=== PATIENT | male | born 1975 | race Caucasian/White ===

== ENCOUNTER 2023-03-02 09:26 | Emergency (ER) | payer BC, SELFPAY ==
[2023-03-02 09:39] VITALS: BP 148/90; PULSE 62; RESP 16; TEMP 36.6; O2SAT 100
--- NOTE | 2023-03-02 09:40 | ED.URI ---
HPI - URI/Sore Throat General Chief Complaint: Upper Respiratory Infection Stated Complaint: sore throat/sinus pressure/nolasco Source: patient and RN notes reviewed History of Present Illness HPI Narrative: 48 yo M presents to urgent care with complaints of worsening sore throat, congestion, sinus pain and pressure x 5 days. Pt states his pain and pressure is in his face, frontal head and has an occipital NOLASCO. Pt denies any ear pain, known fevers, chills, chest pain, SOB, V/D, or other complaints. Pt has been taking Sudafed and ibuprofen with no relief. Related Data Allergies Allergy/AdvReac Type Severity Reaction Status Date / Time Penicillins AdvReac Severe Passed out Verified 12/23/22 08:24 Review of Systems Review of Systems: Pertinent positives and pertinent negatives per HPI. [facility] Past Medical History Medical History GERD (gastroesophageal reflux disease) Hypertension Nicotine dependence, cigarettes, uncomplicated Obesity, unspecified Seasonal rhinitis Family History Family History Grandparent Cerebrovascular accident Diabetes mellitus Father Diabetes mellitus Hypertension Social History Social History Smoking status: Current every day smoker Tobacco type: cigarettes Second hand tobacco smoke exposure: No Alcohol intake: never Substance use: never Substance use type: does not use Living arrangements: with family Occupation/Education: occupation Gender identity (if verbalized by the patient): Male Sexual Orientation (if Verbalized by the Patient): Straight or Heterosexual Spiritual care concerns: No Agree to blood products: Yes Comments At the time of my signature, I reviewed and agree with the nursing past medical, surgical, social, and family history. There is no relevant family history pertinent to the patient complaint. Exam Narrative: GENERAL: This is a well-nourished, well-developed patient, in no apparent distress. HEAD: normocephalic, atraumatic. EYES: Sclera clear/white. Vision is grossly intact. EARS: External ears normal, auditory canals clear and without drainage, TMs normal without perforation. Hearing grossly intact. NOSE: External nose normal with no obvious nasal discharge, nares without redness, no rhinorrhea. THROAT: erythremic. Small amount of exudate noted to tonsils NECK: Neck supple, non-tender without lymphadenopathy, masses or thyromegaly. CARDIOVASCULAR: Regular rate and rhythm without murmurs, gallops, or rubs. RESPIRATORY: Clear to auscultation. Breath sounds equal bilaterally. No wheezes, rales, or rhonchi. SKIN: warm, intact with no suspicious lesions or rash, good texture and turgor. NEURO: awake, alert, and oriented to person, place and time. There were no obvious focal neurologic abnormalities. EXTREMITIES: No clubbing, cyanosis, or edema. No joint tenderness, effusion, or edema noted. Course Course Level of Care: Express Care Visit Vital Signs Vital signs: Vital Signs Temperature 97.9 F 03/02/23 09:39 Pulse Rate 62 03/02/23 09:39 Respiratory Rate 16 03/02/23 09:39 Blood Pressure 148/90 H 03/02/23 09:39 Pulse Oximetry 100 03/02/23 09:39 Temperature 97.9 F 03/02/23 09:39 Pulse Rate 62 03/02/23 09:39 Respiratory Rate 16 03/02/23 09:39 Blood Pressure 148/90 H 03/02/23 09:39 Pulse Oximetry 100 03/02/23 09:39 reviewed MDM - URI/Sore Throat MDM Narrative Medical decision making narrative: Rapid strep is negative in the office; however we will send to the lab for confirmation; there is a small percentage chance that it can come back positive; if it is, we will call you in 2-3days; and your prescription will be call in to your pharmacy. However, there is NO indication for antibiotic at this time. -Increase your fluids and Vi
== END 2023-03-02 10:09 | disposition home or self-care (01) ==
PROVIDERS: Emergency Provider Nurse Practitioner Family; PCP Family Medicine Adolescent Medicine
DX: J02.9 Acute pharyngitis, unspecified (principal); J32.9 Chronic sinusitis, unspecified; F17.210 Nicotine dependence, cigarettes, uncomplicated; K21.9 Gastro-esophageal reflux disease without esophagitis; I10 Essential (primary) hypertension; E66.9 Obesity, unspecified; Z68.35 Body mass index [BMI] 35.0-35.9, adult
CPT/HCPCS: 87081; 87880; 99213; G0463

== ENCOUNTER 2023-06-28 12:28 | Outpatient (CLI) | payer BC, SELFPAY ==
--- NOTE | 2023-06-28 12:30 | ECG_ITS ---
Measurements Intervals [place] Rate: 51 P: 24 [place]: 178 QRS: 5 QRSD: 110 T: -8 QT: 468 QTc: 434 Interpretive Statements SINUS BRADYCARDIA POSSIBLE LEFT VENTRICULAR HYPERTROPHY BORDERLINE ST-T WAVE ABNORMALITY- INFERIOR LEADS BASELINE ARTIFACT- I, III, AVR, AVL, AVF, V2 BORDERLINE ECG NO PREVIOUS ECG AVAILABLE FOR COMPARISON Electronically Signed On 06-28-2023 13:02:59 CDT by Florian Villanueva D.O.
[2023-06-28 13:12] LABS: Anion Gap 7 mmol/L (8-16); Blood Urea Nitrogen 22 mg/dL (9-20); Carbon Dioxide 29 mmol/L (22-30); Chloride 102 mmol/L (98-107); Potassium 3.3 mmol/L (3.4-5.0); Sodium 138 mmol/L (137-145)
[2023-06-28 13:13] LABS: Calcium 8.8 mg/dL (8.4-10.2); Estimated Glomerular Filt Rate > 60; Glucose 120 mg/dL (65-110)
== END 2023-06-28 12:29 | disposition home or self-care (01) ==
LOC: ANHSURGERY 12:33
PROVIDERS: Anesthesiology; PCP Family Medicine Adolescent Medicine; Visit Provider Surgery
DX: I10 Essential (primary) hypertension (principal); Z01.818 Encounter for other preprocedural examination; R94.31 Abnormal electrocardiogram [ECG] [EKG]
CPT/HCPCS: 36415; 80048; 93005

== ENCOUNTER 2023-07-03 01:14 | Day surgery (SDC) | payer BC, SELFPAY ==
--- NOTE | 2023-06-27 09:29 | PC.NURSE ---
Report to the Outpatient Waiting Room, entrance under the green pavilion located off [facility], at time 1000_ on date 07/03/23_. Planned Procedure Time: 1200_. Time changes happen often and if your time is changed the preop area will call you the afternoon before. - You and your visitor will be asked to self-screen and do not enter if you have any COVID symptoms. - A mask is optional within the hospital at this time. Patients may have clear liquids (water, carbonated beverages, clear teas, apple juice) until 3 hours prior to surgery with a maximum of 20 ounces. - No food from midnight until time of surgery - Infants may have breast milk until 4 hours before surgery, formula 6 hours prior to surgery. - Children will be allowed to drink immediately following surgery. If applicable, please bring a bottle or sippy cup to assist with drinking. Juice, water, soda, and popsicles are readily available. For infants on formula, please bring formula the day of surgery. Pacifiers are allowed. Take the following medications with a SIP of water the morning of surgery: ____ATENOLOL DO NOT STOP ANY OF YOUR OTHER PRESCRIPTION MEDICATIONS PRIOR TO SURGERY ?EXCEPT THE FOLLOWING Medications to discontinue per physician NONE Date to take last dose Please no make-up, nail occitan, hairspray, perfume, deodorant, or body powder the day of surgery. No jewelry (including any body piercings) or valuables the day of surgery, leave them at home. Please take a shower or bath the night before, or the morning of, surgery with HIBICLENS antibacterial soap. Wear comfortable, loose fitting clothing. Children are encouraged to wear pajamas. - Jewelry must be removed prior to entering the operating room. Rings and piercings that are not removed may be cut off. - The hospital will not accept responsibility for valuables. - Please leave all valuables, including medications, at home the day of surgery. If you are going home after surgery, a licensed laundry route driver must drive you home. - NO public transportation without another adult if you receive anesthesia. - We recommend that an adult stay with you for 24 hours following discharge. - We also recommend that you do not drive, make important decision, drink alcoholic beverages, or take any drugs that were not prescribed by your health care provider for at least 24 hours after your discharge time. For Pediatric surgeries, we recommend two adults accompany the child home. Follow any additional instructions given to you from your surgeon. If you or anyone in your household have experienced Covid symptoms in the past week, please notify your surgeon or the nurse liaison at the phone number below for possible testing. Telephone instructions given to PATIENT_and asked if any additional questions and then verbalized understanding. Patient advised to call surgeon office or pre surgery nurse liaison [phone] if any additional questions.
--- NOTE | 2023-07-03 10:31 | WPDANESEPPF ---
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 - Alfa Marks MD Date/Time: 07/03/23 10:31 Surgeon: Alfa Marks MD Pre Op Diagnosis: Lt Upper Back Squamous Cell CA In Situ Patient Data Age: 48 Gender: M Height: 1.78 m Weight: 110 kg Allergies Allergy/AdvReac Type Severity Reaction Status Date / Time Penicillins AdvReac Severe Passed out Verified 06/27/23 09:21 Home Medications Medication Instructions Recorded Confirmed Type atenolol 100 mg tablet 100 mg PO DAILY #90 tabs 12/23/22 06/27/23 Rx hydrochlorothiazide 25 mg tablet 25 mg PO DAILY #90 tabs 12/23/22 06/27/23 Rx lisinopril 40 mg tablet 40 mg PO DAILY #90 tabs 12/23/22 06/27/23 Rx omeprazole 20 mg capsule,delayed 20 mg PO DAILY #90 caps 12/23/22 06/27/23 Rx release fluticasone propionate 50 1 spray intranasal BID #16 grams 03/02/23 06/27/23 Rx mcg/actuation nasal spray,suspension (24 Hour Allergy Relief) Patient hx anesthesia problems: none Family hx anesthesia problems: none Results Review: All pre-operative results and documents have been reviewed as part of the pre-operative evaluation. [facility] Past Medical History Medical History Diabetes type 2, controlled 12/2021 GERD (gastroesophageal reflux disease) Hypertension Nicotine dependence, cigarettes, uncomplicated Obesity, unspecified Seasonal rhinitis Surgical History Surgical History History of removal of pigmented skin lesion Family History Family History Grandparent Cerebrovascular accident Diabetes mellitus Father Diabetes mellitus Hypertension Social History Social History Smoking packs per day: 1 Smoking cigarettes per day: 20.0 Years smoked: 20 Smoking pack-years: 20.00 Smoking status: Former smoker Tobacco type: e-cigarettes/vaping Second hand tobacco smoke exposure: No Additional smoking assessment comments: VAPING FOR 1 YR Alcohol intake: never Substance use: never Substance use type: does not use Lack of Transportation: No Lack of Food: Never True Current Housing: I Have Housing Concerned About Future Housing: No Difficulty Paying Gas/Electric Bills: No Difficulty Paying for Meds: No Currently Unemployed: No Education: High School Diploma/GED Difficulty w/ Childcare or Family Care: No Living arrangements: with family Occupation/Education: occupation Additional occupation/education comments: Dietary Tech Gender identity (if verbalized by the patient): Male Sexual Orientation (if Verbalized by the Patient): Straight or Heterosexual Spiritual care concerns: No Agree to blood products: Yes Anes - Eval Final PreProcedure Day of Procedure 07/03/23 10:31 Patient weight: obese Heart: regular rate and rhythm Lungs: clear to auscultation Airway: Mallampati scale class II Neurological: alert and oriented Last oral intake: >/= 8 hours ASA classification: III Emergent: no Anesthetic plan: proceed Anesthesia type and monitoring: general GIVS and standard monitoring Results Review: All pre-operative results and documents have been reviewed as part of the pre-operative evaluation. Informed Consent: The patient's anesthetic plan and its attendant risks and benefits were discussed with the patient/family/POA. Questions were solicited and answers provided to the satisfaction of the patient/family/POA.
[2023-07-03 10:37] VITALS: BP 157/88; PULSE 61; RESP 14; TEMP 37.2; O2SAT 98
[2023-07-03] MEDS: LACTATED RINGERS 1,000 ML 30 ML IV CONT (10:41)
--- NOTE | 2023-07-03 12:00 | WPDHPUPDATE1 ---
History and Physical Update Update Date/Time: 07/03/23 12:00 History and Physical has been reviewed, including an updated exam of the patient. There are NO changes in the patient's condition. Risks, benefits, and alternatives have been discussed and questions answered. Patient agrees to proceed with procedure.
[2023-07-03] MEDS: ceFAZolin 2 GM/D5W 50 ML 2 GM/50 ML BAG IVPB (12:15)
[2023-07-03] MEDS: LIDO 1%/EPINEPHRINE 1:100,000 20 ML VIAL INFILTRATE (12:29)
--- NOTE | 2023-07-03 12:48 | SUR.OPER ---
Surgeon suture notes: Long suture - Lateral 9 o'clock Short suture - Superior 12 o'clock
--- NOTE | 2023-07-03 13:03 | SUR.OPER ---
Surgeon states: 6.5cm Closure
[2023-07-03 13:15] VITALS: BP 138/78; PULSE 52; RESP 12; O2SAT 97
--- NOTE | 2023-07-03 13:32 | W.PM.PROC2 ---
Procedure Note - Detailed Date of Procedure 07/03/23 Pre-op Diagnosis Lt Upper Back Squamous Cell CA In Situ Post-op Diagnosis Same Procedure Performed Wide excision of left upper back squamous cell carcinoma in Situ with 6.5cm intermediate layered wound closure. Surgeon Alfa Marks MD Branch Operation Evaluation Manager Nicolas Cavazos, OMI Anesthesia MAC Indications Patient is a 48-year-old gentleman who had a suspicious skin lesion of left upper back area biopsied with a punch biopsy in the primary care physician's office. This came back as a squamous cell carcinoma in Situ. Who presents now for wide excision of the early cancerous lesion. Findings Lesion itself was 2 x 1.5 cm. A 0.5cm minimal circumferential resection margin was obtained. Description of Procedure After informed consent was obtained patient brought to the operating room and placed in the right lateral decubitus position on the operating table. IV sedation was administered by anesthesia. The area of the left upper back region was then prepped and draped in usual sterile fashion. A time-out was then performed correctly identifying the patient as well as procedure to be performed and verified the site marking. He was given perioperative IV antibiotics. I then measured the lesion prior to resecting it and it was 2cm in length by 1.5cm in width. It was non ulcerated. I then marked out a circumferential 0.5cm margin completely around the lesion. I then marked out a elongated transverse ellipse on the skin with a marker making sure there was a minimal 0.5cm margin. I anesthetized the area utilizing 1% lidocaine mixed with 0.5% Marcaine with some epinephrine. Once this was done I then used a scalpel to incise down into the dermis of the skin all the way down to the underlying subcutaneous fat all the way around the lesion maintaining the 0.5cm margin. I then completely excised out the ellipse of skin completely incorporating the skin lesion full thickness all the way down to the subcutaneous tissues. I then marked the lesion ellipse of tissue with a 3-0 nylon suture for orientation purposes on the margins. I then achieved hemostasis and incision with electro cautery. It was then irrigated sterile saline solution. I then performed a intermediate layered wound closure measuring 6.5cm in length. It was performed utilizing interrupted 2-0 Vicryl sutures in the deeper subcutaneous tissues which is then followed by layer interrupted 3-0 Vicryl sutures in the deep dermis and then interrupted 2-0 nylon sutures placed in a vertical mattress fashion were used to approximate the skin edges. The incision was then cleaned and then antibiotic ointment and sterile dressing was applied. The patient tolerated the procedure well no complications. All sponges, needles, and instrument counts were correct at the end procedure. EBL was _5__cc. The patient was awakened and taken to recovery in stable and satisfactory condition. Implants None Estimated Blood Loss 5 Drains No Packing No Pathology Yes (Ellipse of skin containing the skin lesion with orienting sutures on the margins sent to pathology) Complications No immediate complications Condition Stable Disposition PACU [facility] Billing Surgery - Charge Forward: Surgery Billing
[2023-07-03 13:45] VITALS: BP 139/71; PULSE 47; RESP 12
[2023-07-03 14:15] VITALS: BP 138/75; PULSE 48; RESP 12
== END 2023-07-03 14:07 | disposition home or self-care (01) ==
PROVIDERS: PCP Family Medicine Adolescent Medicine; Visit Provider Surgery
PROC: (CPT 11606; principal; 2023-07-03 12:00)
DX: D04.5 Carcinoma in situ of skin of trunk (principal); I10 Essential (primary) hypertension; E11.9 Type 2 diabetes mellitus without complications; K21.9 Gastro-esophageal reflux disease without esophagitis; J31.0 Chronic rhinitis; E66.9 Obesity, unspecified; Z68.35 Body mass index [BMI] 35.0-35.9, adult; F17.290 Nicotine dependence, other tobacco product, uncomplicated
CPT/HCPCS: 11606; 12032; 88307; J0690; J2250; J2405; J3010; J7120